=== PATIENT | female | born 1995 | race Two or more races ===

== ENCOUNTER 2023-01-01 09:19 | Outpatient (CLI) | payer OTHER | END 2023-01-01 09:31 | disposition home or self-care (01) | LOC: RX STUDY 09:19 | PROVIDERS: ATTEND Obstetrics & Gynecology Reproductive Endocrinology | DX: N94.6 Dysmenorrhea, unspecified (principal); E28.8 Other ovarian dysfunction ==

== ENCOUNTER 2025-10-03 17:50 | Emergency (ER) | payer OTHER ==
[~2025-10-03] VITALS: Ht 154.9 cm; Wt 66.2 kg
[2025-10-03] MEDS ORDERED: SYNTHROID50 MCG PO (17:58)
[2025-10-03] MEDS ORDERED: AMITRIPTYLINE H25 MG PO (17:59)
[2025-10-03] MEDS ORDERED: LINZESS290 MCG PO (17:59)
[2025-10-03] MEDS ORDERED: FAMOTIDINE/PF 20 MG/2 ML VIAL IV ONE (18:30)
[2025-10-03] MEDS ORDERED: 0.9 % SODIUM CHLORIDE 1,000 ML IV SCH (18:30)
[2025-10-03] MEDS ORDERED: FAMOTIDINE/PF 20 MG/2 ML VIAL ONE (19:09)
[2025-10-03 19:36] LABS: BASO % 0.2 % (0.1-1.2); EOS # 0.40 (0.04-0.54); EOS % 4.9 % (0.7-7.0); LYMPH # 3.13 (1.18-3.74); LYMPH % 38.5 % (19.3-53.1); MEAN PLATELET VOLUME 9.40 fl (9.4-12.4); MONO # 0.33 (0.24-0.82); MONO % 4.1 % (4.7-12.5); NEUT # 4.25 (1.56-6.13); NEUT % 52.2 % (34.0-71.1); RED CELL DISTRIBUTION WIDTH 12.4 % (11.6-14.4)
[2025-10-03 19:46] LABS: ERYTHROCYTE SEDIMENTATION RATE 18 mm/hr (0-20)
[2025-10-03 19:55] LABS: INR 1.04
[2025-10-03 20:04] LABS: ALT/SGPT 17.0 U/L (12-78); AST/SGOT 13.0 U/L (15-37); BILIRUBIN TOTAL 0.33 mg/dL (0.3-1.2); BUN CREA RATIO 22.0 (7.0-25.0); CREATININE SERUM 0.92 mg/dL (0.55-1.02); GFR 71.68; GLOBULINA 4.1 G/DL (2.4-3.5); GLUCOSE FASTING 90.0 mg/dL (65-100); OSMOLALITY SERUM 282.0 MOSM/KG (275-295)
[2025-10-03 20:17] LABS: URINE APPEARANCE Clear; URINE BILIRRUBIN Negative (NEGATIVE); URINE BLOOD Small; URINE COLOR Yellow; URINE GLUCOSE Negative (NEGATIVE); URINE KETONE Negative (NEGATIVE); URINE LEUKOCYTE Negative; URINE NITRATE Negative; URINE PROTEIN Negative (NEGATIVE); URINE UROBILINOGEN 0.2 E.U./dl
[2025-10-03 20:22] LABS: URINE BACTERIA 229.1 uL (0.0-1933); URINE EPITHELIAL CELLS 22.9 uL (0.0-38.8); URINE RBC 35.9 uL (0.0-20.8); URINE WBC 7.3 uL (0.0-23.2)
[2025-10-03 20:24] LABS: URINE CAST 0.00 uL (0.0-1.40)
[2025-10-04] MEDS ORDERED: ANUSOL-HC25 MG RECTAL (00:40)
[2025-10-04] MEDS ORDERED: POLY119PG PO (00:40)
== END 2025-10-04 00:56 ==
LOC: ER 17:50
PROVIDERS: Student in an Organized Health Care Education/Training Program
DX: K62.5 Hemorrhage of anus and rectum (principal); K64.9 Unspecified hemorrhoids; K59.00 Constipation, unspecified; K52.89 Other specified noninfective gastroenteritis and colitis; E03.9 Hypothyroidism, unspecified; Z88.8 Allergy status to other drugs, medicaments and biological substances